=== PATIENT | male | born 1960 | race Caucasian/White ===

== ENCOUNTER 2016-08-02 08:08 | Emergency (ER) | payer BC, OTHER ==
[~2016-08-02] VITALS: Ht 170.2 cm; Wt 82.5 kg
[~2016-08-02 08:08] MED LIST: IBUP600T44 PO; NAPR1TAB9 PO; PRLSR20 PO; zyrtec PO
[2016-08-02 08:11] VITALS: TEMP 36.5; Ht 170.2 cm; Wt 82.5 kg
[2016-08-02] MEDS ORDERED: OMEG10007 PO (08:41)
[2016-08-02] MEDS ORDERED: TAMS0.4C38 PO (08:41)
[2016-08-02] MEDS ORDERED: MULT-506 PO (08:41)
[2016-08-02] MEDS ORDERED: DUTA0.5C PO (08:41)
--- NOTE | 2016-08-02 09:10 | EMERGENCY ROOM VISIT NOTE ---
History Report prepared by Debbi: Jenaro De Jesus Under the Supervision of: Dr. Palmira Chirinos M.D. First contact with patient: 08:56 Chief Complaint: CHEST PAIN Stated Complaint: CHEST PAINS Nursing Triage Summary: Pt c/o left chest pain that began yesterday at work, denies doing anything strenuous at the time. Pain is sharp and brief. Intermittent. Denies Chest pain at this time. Denies SOB, nausea, dizziness, diaphoresis when this occurs. History of Present Illness The patient is a 56 year old male who presents to the Emergency Room with complaints of sharp intermittent left sided chest pain that began yesterday. He rates his pain mild in severity. His pain comes for only about a couple seconds , then it goes away for a few hours. He was at work when the pain began. He denies that he was doing anything abnormal. The pain kept him awake for a few hours last night. He has no past history of heart problems. However, he does have a family history of heart conditions. He states that he quit smoking a couple of years ago as well. When he lies flat, he becomes mildly short of breath. His pain does not occur with exertion. He also gets a mildly sore neck with the pain as well. He is currently has nasal congestion. He denies any nausea or abdominal pain. He denies any past medical history of diabetes or hypertension. He is unsure about his cholesterol levels. He received a cardiac stress test 6 years ago that did not show anything abnormal. He took Aspirin 325 mg PO today. He did not take any nitroglycerin. Source of History: patient Onset: yesterday Position: chest (left) Symptom Intensity: mild Quality: sharp Timing: intermittent Modifying Factors (Worsening): rest (lying flat causes mild sob) Associated Symptoms: + neck pain, No abdominal pain, No nausea Note: He is having nasal congestion. Review of Systems See HPI for pertinent positives & negatives. A total of 10 systems reviewed and were otherwise negative. Past Medical & Surgical Medical Problems: (1) No Known Active Medical Problems Family History Heart disease Social History Smoking Status: Former Smoker Smokeless Tobacco Use: No Drug Use: none Marital Status: Housing Status: lives with significant other Occupation Status: employed Current/Historical Medications Scheduled Dutasteride (Avodart), 0.5 MG PO HS Fish Oil ([place]-3), 350 MG PO DAILY Multivitamin (Multivitamin), 1 TAB PO DAILY Omeprazole (Prilosec), 1 TAB PO DAILY Tamsulosin Hcl (Flomax), 0.4 MG PO HS Allergies Coded Allergies: Ciprofloxacin (Verified Allergy, Unknown, Tendonitis, 08/02/16) Physical Exam Vital Signs Date Time Temp Pulse Resp B/P Pulse Ox O2 Delivery O2 Flow Rate FiO2 08/02/16 11:22 62 18 122/70 96 Room Air 08/02/16 10:57 64 08/02/16 09:50 72 18 121/59 97 Room Air 08/02/16 08:26 71 08/02/16 08:14 96 Room Air 08/02/16 08:11 36.5 74 16 121/68 96 Room Air Physical Exam Vital signs reviewed. General: Well-appearing male, in no significant distress. HEENT: No scleral icterus, PERRLA, neck supple. Atraumatic. Cardiovascular: Regular rate and rhythm, no extra sounds. Pulmonary: Clear to auscultation bilaterally, normal work of breathing. Abdomen: Soft, nontender, nondistended, positive bowel sounds. Musculoskeletal: Atraumatic, no peripheral edema. Neurologic: Patient awake alert and oriented x 3, full strength in all 4 extremities. Cranial nerves 2 through 12 grossly intact. Skin: Warm, dry, no rash Medical Decision & Procedures ER Provider Diagnostic Interpretation: Radiology results as stated below per my review and radiologist interpretation: CHEST ONE VIEW PORTABLE CLINICAL HISTORY: chest pain dyspnea COMPARISON STUDY: 01/12/2013 FINDINGS: The bones soft tissues and hemidiaphragms are normal. The cardiomediastinal silhouette is normal. The lungs are clear. The pulmonary vasculature is normal. IMPRESSION: Negative chest. Electronically signed by: Marquis Khanna M.D. 08/02/2016 9:24 AM Dictated Date/Time: 08/02/2016 9:24 AM Laboratory Results 08/02/16 08:45 Red Blood Count 4.90, Mean Corpuscular Volume 87.3, Mean Corpuscular Hemoglobin 30.4, Mean Corpuscular Hemoglobin Concent 34.8, Mean Platelet Volume 10.2, Neutrophils (%) (Auto) 69.0, Lymphocytes (%) (Auto) 23.7, Monocytes (%) (Auto) 4.2, Eosinophils (%) (Auto) 2.4, Basophils (%) (Auto) 0.5, Neutrophils # (Auto) 4.60, Lymphocytes # (Auto) 1.58, Monocytes # (Auto) 0.28, Eosinophils # (Auto) 0.16, Basophils # (Auto) 0.03 08/02/16 08:45 Test 08/02/16 08:45 08/02/16 09:11 08/02/16 10:23 White Blood Count 6.66 K/uL (4.8-10.8) Red Blood Count 4.90 M/uL (4.7-6.1) Hemoglobin 14.9 g/dL (14.0-18.0) Hematocrit 42.8 % (42-52) Mean Corpuscular Volume 87.3 fL (80-100) Mean Corpuscular Hemoglobin 30.4 pg (25-34) Mean Corpuscular Hemoglobin Concent 34.8 g/dl (32-36) Platelet Count 225 K/uL (130-400) Mean Platelet Volume 10.2 fL (7.4-10.4) Neutrophils (%) (Auto) 69.0 % Lymphocytes (%) (Auto) 23.7 % Monocytes (%) (Auto) 4.2 % Eosinophils (%) (Auto) 2.4 % Basophils (%) (Auto) 0.5 % Neutrophils # (Auto) 4.60 K/uL (1.4-6.5) Lymphocytes # (Auto) 1.58 K/uL (1.2-3.4) Monocytes # (Auto) 0.28 K/uL (0.11-0.59) Eosinophils # (Auto) 0.16 K/uL (0-0.5) Basophils # (Auto) 0.03 K/uL (0-0.2) RDW Standard Deviation 39.0 fL (36.4-46.3) RDW Coefficient of Variation 12.2 % (11.5-14.5) Immature Granulocyte % (Auto) 0.2 % Immature Granulocyte # (Auto) 0.01 K/uL (0.00-0.02) Anion Gap 6.0 mmol/L (3-11) Est Creatinine Clear Calc Drug Dose 60.6 ml/min Estimated GFR () 64.6 Estimated GFR (Non- 55.8 BUN/Creatinine Ratio 14.6 (10-20) Calcium Level 8.6 mg/dl (8.5-10.1) Magnesium Level 2.4 mg/dl (1.8-2.4) Total Bilirubin 0.3 mg/dl (0.2-1) Direct Bilirubin < 0.1 mg/dl (0-0.2) Aspartate Amino Transf (AST/SGOT) 18 U/L (15-37) Alanine Aminotransferase (ALT/SGPT) 33 U/L (12-78) Alkaline Phosphatase 82 U/L (45-117) Total Creatine Kinase 193 U/L (39-308) Creatine Kinase MB 2.2 ng/ml (0.5-3.6) Creatine Kinase MB Ratio 1.1 (0-3.0) Total Protein 6.6 gm/dl (6.4-8.2) Albumin 3.8 gm/dl (3.4-5.0) Bedside D-Dimer 343 ng/mlFEU (0-450) Bedside Troponin I 0.000 ng/ml (0-0.045) Laboratory results per my review. ECG Indication: chest pain Rate (beats per minute): 69 Rhythm: normal sinus Findings: no acute ischemic change, no ectopy ED Course 0856: Past medical records reviewed. The patient was evaluated in room B6. A complete history and physical examination was performed. 0915: Ordered Nitroglycerin 0.4 mg SL 1150: Upon reevaluation, the patient appeared to have improvement of his symptoms. I discussed findings with him. He verbalized agreement of the treatment plan. He was discharged home. Medical Decision Differential diagnosis: Etiologies such as cardiac ischemia, aortic dissection, pulmonary embolism, pneumonia, pneumothorax, musculoskeletal, infections, pericarditis, myocarditis , esophageal rupture, gastrointestinal, as well as others were entertained. This patient was evaluated and appeared to be in no significant distress. IV access was obtained and laboratory work was drawn. The patient was placed on the blood tester fowl and found to be in a normal sinus rhythm. EKG was obtained and is negative for acute ischemia. Patient's laboratory work reveals negative cardiac enzymes. He was informed of the findings. The patient will be discharged to follow-up with his primary care physician for further cardiac testing as indicated. He will return to the ER for worsening of symptoms or any medical concerns. Impression Primary Impression: Atypical chest pain Scribe Attestation The scribe's documentation has been prepared under my direction and personally reviewed by me in its entirety. I confirm that the note above accurately reflects all work, treatment, procedures, and medical decision making performed by me. Departure Information Dispostion Home / Self-Care Referrals Clemente Babcock M.D. (PCP) Forms HOME CARE DOCUMENTATION FORM, IMPORTANT VISIT INFORMATION Patient Instructions My [facility] Additional Instructions Diagnosis: Chest pain Aspirin 81 mg daily. Follow-up with your physician this week for reevaluation and consideration of further cardiac testing. Return to the ED for worsening of symptoms or any medical concerns.
[2016-08-02] MEDS ORDERED: NITROGLYCERIN 0.4 MG SL PER TAB CHARGE SL PRN (09:15)
--- NOTE | 2016-08-02 09:25 | DIAGNOSTIC IMAGING REPORT ---
CHEST ONE VIEW PORTABLE CLINICAL HISTORY: chest pain dyspnea COMPARISON STUDY: 01/12/2013 FINDINGS: The bones soft tissues and hemidiaphragms are normal. The cardiomediastinal silhouette is normal. The lungs are clear. The pulmonary vasculature is normal. IMPRESSION: Negative chest. Electronically signed by: Marquis Khanna M.D. 08/02/2016 9:24 AM Dictated Date/Time: 08/02/2016 9:24 AM
[2016-08-02 09:32] LABS: BASO % 0.5 %; BASO ABS # 0.03 K/uL (0-0.2); COMPLETE YES; EOS % 2.4 %; HEMATOCRIT 42.8 % (42-52); IG% 0.2 %; LYMPH % 23.7 %; LYMPH ABS # 1.58 K/uL (1.2-3.4); MEAN CELL VOLUME 87.3 fL (80-100); MEAN CORPUSCULAR HEMOGLOBIN 30.4 pg (25-34); MEAN CORPUSCULAR HGB CONC 34.8 g/dl (32-36); MEAN PLATELET VOLUME 10.2 fL (7.4-10.4); MONO % 4.2 %; PLATELET COUNT 225 K/uL (130-400); WHITE BLOOD COUNT 6.66 K/uL (4.8-10.8)
[2016-08-02 09:44] LABS: ALT/SGPT 33 U/L (12-78); AST/SGOT 18 U/L (15-37); BLOOD UREA NITROGEN 20 mg/dl (7-18); BUN/CREATININE RATIO 14.6 (10-20); CALCIUM 8.6 mg/dl (8.5-10.1); CARBON DIOXIDE 27 mmol/L (21-32); CHLORIDE 108 mmol/L (98-107); GLUCOSE 168 mg/dl (70-99); MAGNESIUM 2.4 mg/dl (1.8-2.4); SODIUM 141 mmol/L (136-145)
[2016-08-02 09:49] LABS: ALKALINE PHOSPHATASE 82 U/L (45-117); CKMB/CK RATIO 1.1 (0-3.0)
[2016-08-02 11:22] VITALS: BP 122/70; PULSE 62; O2SAT 96
== END 2016-08-02 11:47 | disposition home or self-care (01) ==
LOC: C.EDB 08:09
DX: R07.89 Other chest pain (principal); Z87.891 Personal history of nicotine dependence; Z79.899 Other long term (current) drug therapy

== ENCOUNTER 2016-10-25 07:46 | Emergency (ER) | payer BC, OTHER ==
[~2016-10-25] VITALS: Ht 172.7 cm; Wt 81.5 kg
[~2016-10-25 07:46] MED LIST changes: +DUTA0.5C PO; -IBUP600T44 PO; +MULT-506 PO; -NAPR1TAB9 PO; +OMEG10007 PO; +TAMS0.4C38 PO; -zyrtec PO
[2016-10-25 07:50] VITALS: TEMP 36.4; Ht 172.7 cm; Wt 81.5 kg
[2016-10-25] MEDS ORDERED: HYDROmorphone INJ 2 MG/ML SYR/VIAL ONE (07:57)
--- NOTE | 2016-10-25 08:02 | EMERGENCY ROOM VISIT NOTE ---
History Report prepared by Debbi: Pebbles Ag Under the Supervision of: Dr. Palmira Chirinos M.D. First contact with patient: 07:55 Chief Complaint: SHOULDER PAIN Stated Complaint: DISLOCATED SHOULDER History of Present Illness The patient is a 56 year old male who presents to the Emergency Room with complaints of persistent right shoulder pain that began just prior to arrival. He currently rates his discomfort as an 8/10 in severity. The patient states that he slipped and fell this morning and caught himself with his right arm extended. He denies any previous dislocation. The patient's reports that the patient was recently evaluated in the emergency department for chest pain. She states that he followed up with his doctor and had a normal stress test. The patient's states that the patient has a strong family history of heart disease. The patient denies any nausea. Source of History: patient, spouse/significant other () Onset: prior to arrival Position: shoulder (right) Symptom Intensity: 8/10 Timing: other (persistent) Associated Symptoms: No nausea Review of Systems See HPI for pertinent positives & negatives. A total of 10 systems reviewed and were otherwise negative. Past Medical & Surgical Medical Problems: (1) No Known Active Medical Problems Family History Heart disease Social History Smoking Status: Former Smoker Drug Use: none Marital Status: Housing Status: lives with significant other Occupation Status: employed Current/Historical Medications Scheduled Aspirin (Aspirin Ec), 81 MG PO DAILY Cetirizine Hcl (Zyrtec), 10 MG PO DAILY Dutasteride (Avodart), 0.5 MG PO HS Fish Oil ([place]-3), 350 MG PO DAILY Multivitamin (Multivitamin), 1 TAB PO DAILY Omeprazole (Prilosec), 20 MG PO DAILY Tamsulosin Hcl (Flomax), 0.4 MG PO HS Allergies Coded Allergies: Ciprofloxacin (Verified Allergy, Unknown, Tendonitis, 10/25/16) Physical Exam Vital Signs Date Time Temp Pulse Resp B/P (MAP) Pulse Ox O2 Delivery O2 Flow Rate FiO2 10/25/16 09:13 62 16 125/69 95 10/25/16 07:50 36.4 77 16 113/69 93 Room Air Physical Exam Vital signs reviewed. General: Well-appearing male, in some discomfort. HEENT: No scleral icterus, PERRLA, neck supple. Atraumatic. Cardiovascular: Regular rate and rhythm, no extra sounds. Pulmonary: Clear to auscultation bilaterally, normal work of breathing. Abdomen: Soft, nontender, nondistended, positive bowel sounds. Musculoskeletal: Deformity of right shoulder. Humeral head is palpated anteriorly, decreased range of motion due to pain. No stepoff or crepitus appreciated. Neurologic: Patient awake alert and oriented x 3, full strength in all 4 extremities. Cranial nerves 2 through 12 grossly intact. Skin: Warm, dry, no rash Medical Decision & Procedures ER Provider Diagnostic Interpretation: X-ray results as stated below per interpretation by me and the radiologist: RIGHT SHOULDER MIN 2 VIEWS ROUTINE CLINICAL HISTORY: Right shoulder dislocation, postreduction. COMPARISON: None FINDINGS: Alignment of the right glenohumeral joint is anatomic. No acute fracture is identified. No convincing Hill-Sachs deformity is identified. A 5 mm calcific density along the proximal shaft of the right humerus is of doubtful significance. 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 There is mild glenohumeral joint osteoarthritis. IMPRESSION: Anatomic alignment of the right glenohumeral joint status post reduction. No fracture identified. Electronically signed by: Tal An M.D. 10/25/2016 8:33 AM Dictated Date/Time: 10/25/2016 8:31 AM Medications Administered Medications (Trade) Dose Ordered Sig/Jesus Route Start Time Stop Time Status Last Admin Dose Admin Hydromorphone HCl (Dilaudid Inj) 2 mg STK-MED ONCE .ROUTE 10/25/16 07:57 10/25/16 07:58 DC 10/25/16 08:01 2 MG Procedure Anterior Shoulder Dislocation Reduction Indication: right should dislocation Verbal consent obtained. Risks and benefits were explained with the usual customary discussion. A time out was taken. Neurovascular examination before the procedure revealed intact. The right shoulder glenohumeral dislocation was reduced by placing the patient prone and applying gentle downward inline traction on the humerus, with the elbow flexed at 90 degrees, while scapula manipulation was applied. This resulted in an easy reduction without complication. Neurovascular examination after the procedure revealed intact. The patient had significant pain relief and tolerated the procedure well. ED Course 0756: Past medical records reviewed. The patient was evaluated in room A10. A complete history and physical examination was performed. 0757: Ordered Dilaudid Inj 2 mg .route. 0858: I reevaluated the patient and he is resting comfortably. I discussed the exam findings with him and I discussed the treatment plan. He verbalized complete understanding and agreement. He is ready to go home. Medical Decision Differential diagnosis: Etiologies such as fracture, dislocation, neurovascular compromise, compartment syndrome, soft tissue injury, as well as others were entertained. Medication Reconciliation: I attest that I have personally reviewed the patient' s current medication list. Blood Pressure Screening: Patient was found to have normal blood pressure on screening and does not require follow-up. This patient was evaluated and appeared to be in no significant distress. The patient was given Dilaudid 2 mg IM. He was placed into the prone position with his affected shoulder on the edge of the bed. He was encouraged to straighten the arm and reach for the floor. Some gentle traction was placed on the arm with easy reduction of the right shoulder. There were no complications. The patient was rolled into the supine position and placed into a sling. Postreduction films confirm realignment of the joint. There is no acute bony fracture. Patient was discharged follow-up with orthopedic surgery. He was ibuprofen for pain and ice the shoulder intermittently for the next 24 hours. He will return to the ER for worsening of symptoms or any medical concerns. Impression Primary Impression: Shoulder dislocation Scribe Attestation The scribe's documentation has been prepared under my direction and personally reviewed by me in its entirety. I confirm that the note above accurately reflects all work, treatment, procedures, and medical decision making performed by me. Departure Information Dispostion Home / Self-Care Referrals Clemente Babcock M.D. (PCP) William Negrete D.O. Forms HOME CARE DOCUMENTATION FORM, IMPORTANT VISIT INFORMATION Patient Instructions My [facility] Additional Instructions Diangosis: Shoulder dislocation Ibuprofen 600 mg every 6 hours as needed for pain. Wear the sling at all times except for bathing. Apply ice intermittently for 24 hours. Follow up with orhtopedics this week for reevaluation. Return to the ED for worsening of symptoms or any medical concerns.
--- NOTE | 2016-10-25 08:34 | DIAGNOSTIC IMAGING REPORT ---
RIGHT SHOULDER MIN 2 VIEWS ROUTINE CLINICAL HISTORY: Right shoulder dislocation, postreduction. COMPARISON: None FINDINGS: Alignment of the right glenohumeral joint is anatomic. No acute fracture is identified. No convincing Hill-Sachs deformity is identified. A 5 mm calcific density along the proximal shaft of the right humerus is of doubtful significance. 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 There is mild glenohumeral joint osteoarthritis. IMPRESSION: Anatomic alignment of the right glenohumeral joint status post reduction. No fracture identified. Electronically signed by: Tal An M.D. 10/25/2016 8:33 AM Dictated Date/Time: 10/25/2016 8:31 AM
[2016-10-25] MEDS ORDERED: CETI10TA10 PO (08:37)
[2016-10-25] MEDS ORDERED: ASPI81TA28 PO (08:37)
[2016-10-25 09:13] VITALS: BP 125/69; PULSE 62; O2SAT 95
== END 2016-10-25 09:14 | disposition home or self-care (01) ==
LOC: C.EDB 07:49 → C.EDA 09:14
DX: S43.004A Unspecified dislocation of right shoulder joint, initial encounter (principal); W01.0XXA Fall on same level from slipping, tripping and stumbling without subsequent striking against object, initial encounter; Z87.891 Personal history of nicotine dependence; Z79.82 Long term (current) use of aspirin; Z79.899 Other long term (current) drug therapy

== ENCOUNTER → 2017-07-02 | Outpatient (CLI) | payer OTHER ==
[~2017-07-02] MED LIST changes: +ASPI81TA28 PO; +CETI10TA10 PO; +PENT100C6 PO; +RANI150T3 PO
[2017-07-02 16:56] LABS: BASO % 0.3 %; BASO ABS # 0.03 K/uL (0-0.2); EOS % 1.6 %; EOS ABS # 0.14 K/uL (0-0.5); HEMATOCRIT 43.4 % (42-52); HEMOGLOBIN 15.3 g/dL (14.0-18.0); IG# 0.05 K/uL (0.00-0.02); LYMPH % 24.1 %; MEAN CELL VOLUME 85.9 fL (80-100); MEAN CORPUSCULAR HEMOGLOBIN 30.3 pg (25-34); MEAN CORPUSCULAR HGB CONC 35.3 g/dl (32-36); MONO % 6.9 %; NEUT % 66.5 %; NEUT ABS # 5.79 K/uL (1.4-6.5); PLATELET COUNT 240 K/uL (130-400); RED CELL DISTRIBUTION WIDTH CV 12.4 % (11.5-14.5); RED CELL DISTRIBUTION WIDTH SD 38.9 fL (36.4-46.3); WHITE BLOOD COUNT 8.71 K/uL (4.8-10.8)
[2017-07-02 17:16] LABS: ALBUMIN 4.2 gm/dl (3.4-5.0); ALT/SGPT 47 U/L (12-78); BLOOD UREA NITROGEN 17 mg/dl (7-18); CALCIUM 9.3 mg/dl (8.5-10.1); CARBON DIOXIDE 27 mmol/L (21-32); CREATININE 1.24 mg/dl (0.60-1.40); GLUCOSE 96 mg/dl (70-99); POTASSIUM 4.2 mmol/L (3.5-5.1); SODIUM 138 mmol/L (136-145)
[2017-07-02 17:19] LABS: ALKALINE PHOSPHATASE 75 U/L (45-117); AST/SGOT 29 U/L (15-37); TOTAL PROTEIN 7.3 gm/dl (6.4-8.2)
== END | disposition home or self-care (01) ==
LOC: C.LABBC 12:44
PROVIDERS: ATTEND Nurse Practitioner Adult Health
DX: K21.9 Gastro-esophageal reflux disease without esophagitis (principal); R10.13 Epigastric pain

== ENCOUNTER 2017-07-05 04:29 | Emergency (ER) | payer OTHER ==
[~2017-07-05] VITALS: Ht 172.7 cm; Wt 82.1 kg
[~2017-07-05 04:29] MED LIST changes: -PENT100C6 PO; -RANI150T3 PO
[2017-07-05 04:36] VITALS: TEMP 36.6; Ht 172.7 cm; Wt 82.1 kg
[2017-07-05] MEDS ORDERED: RANI150T3 PO (05:04)
[2017-07-05] MEDS ORDERED: PENT100C6 PO (05:04)
[2017-07-05 05:50] LABS: BASO % 0.5 %; BASO ABS # 0.03 K/uL (0-0.2); EOS % 4.2 %; EOS ABS # 0.28 K/uL (0-0.5); HEMATOCRIT 42.1 % (42-52); HEMOGLOBIN 14.9 g/dL (14.0-18.0); IG# 0.05 K/uL (0.00-0.02); LYMPH % 36.8 %; LYMPH ABS # 2.44 K/uL (1.2-3.4); MEAN CELL VOLUME 86.3 fL (80-100); MEAN CORPUSCULAR HEMOGLOBIN 30.5 pg (25-34); MEAN CORPUSCULAR HGB CONC 35.4 g/dl (32-36); MEAN PLATELET VOLUME 10.1 fL (7.4-10.4); MONO % 9.8 %; MONO ABS # 0.65 K/uL (0.11-0.59); NEUT % 47.9 %; NEUT ABS # 3.18 K/uL (1.4-6.5); PLATELET COUNT 224 K/uL (130-400); RED CELL DISTRIBUTION WIDTH CV 12.4 % (11.5-14.5); RED CELL DISTRIBUTION WIDTH SD 39.3 fL (36.4-46.3); WHITE BLOOD COUNT 6.63 K/uL (4.8-10.8)
[2017-07-05 05:56] LABS: ALBUMIN 3.8 gm/dl (3.4-5.0); ALT/SGPT 41 U/L (12-78); AST/SGOT 25 U/L (15-37); BLOOD UREA NITROGEN 18 mg/dl (7-18); CALCIUM 8.7 mg/dl (8.5-10.1); CARBON DIOXIDE 28 mmol/L (21-32); GLUCOSE 114 mg/dl (70-99); LIPASE 164 U/L (73-393); POTASSIUM 4.3 mmol/L (3.5-5.1); SODIUM 138 mmol/L (136-145)
[2017-07-05 06:01] LABS: ALKALINE PHOSPHATASE 78 U/L (45-117); TOTAL PROTEIN 6.8 gm/dl (6.4-8.2)
--- NOTE | 2017-07-05 06:40 | EMERGENCY ROOM VISIT NOTE ---
History First contact with patient: 05:03 Chief Complaint: ABDOMINAL PAIN Stated Complaint: ABD PAIN AND NECK Nursing Triage Summary: c/o abd pain for " a while." pain worse at night. c/o pain across abd this am mid right quadrant. denies n/v/d. History of Present Illness The patient is a 57 year old male who presents to the Emergency Room with complaints of abdominal pain for the past few days. The patient reports that he was at his primary care provider's office 2 days ago for these symptoms. They thought at that time that he was having a flareup of his GERD. He is being scheduled for an EGD. The patient reports he has had upper abdominal pain with radiation through to the back. He states that he woke up 4 hours ago due to the pain. The pain is primarily in the right upper abdomen and radiates into the back. He reports a pressure sensation. He takes omeprazole and ranitidine for his GERD. He states that he has been told he has gallstones in the past. He denies any history of other abdominal issues. He denies nausea/ vomiting, changes in bowel movements, fevers or urinary symptoms. He rates his discomfort a 5/10. Nothing makes the pain better or worse. He has had a normal appetite. Review of Systems A complete 10 point review of systems was reviewed with the patient with pertinent positives and negatives as per history of present illness. All else were negative. Past Medical/Surgical History Medical Problems: (1) No Known Active Medical Problems Family History Heart disease Social History Smoking Status: Never Smoker Drug Use: none Marital Status: Housing Status: lives with significant other Occupation Status: employed Current/Historical Medications Scheduled Aspirin (Aspirin Ec), 81 MG PO DAILY Cetirizine Hcl (Zyrtec), 10 MG PO DAILY Dutasteride (Avodart), 0.5 MG PO HS Multivitamin (Multivitamin), 1 TAB PO DAILY Omeprazole (Prilosec), 20 MG PO DAILY Pentosan Polysulfate Sodium (Elmiron), 100 MG PO DAILY Ranitidine Hcl (Zantac), 150 MG PO HS Tamsulosin Hcl (Flomax), 0.4 MG PO HS Physical Exam Vital Signs Date Time Temp Pulse Resp B/P (MAP) Pulse Ox O2 Delivery O2 Flow Rate FiO2 07/05/17 07:40 63 16 115/76 98 07/05/17 06:20 65 20 131/68 99 Room Air 07/05/17 04:36 36.6 82 18 129/80 99 Room Air Physical Exam VITALS: Vitals are noted on the nurse's note and reviewed by myself. Vital signs stable. GENERAL: This is a 57-year-old male, in no acute distress, nondiaphoretic, well- developed well-nourished. SKIN: The skin was without rashes. EARS: External auditory canals clear, tympanic membranes pearly edlgado without erythema or effusion bilaterally. EYES: Pupils equal round and reactive to light and accommodation. MOUTH: Mucous membranes moist. Tonsils are not enlarged. Pharynx without erythema or exudate. HEART: Regular rate and rhythm without murmurs gallops or rubs. LUNGS: Clear to auscultation bilaterally without wheezes, rales or rhonchi. ABDOMEN: Positive bowel sounds x 4. Soft, mild tenderness across the upper abdomen. No guarding or rebound tenderness. NEURO: Patient was alert and oriented to person place and time. Medical Decision & Procedures ER Provider Diagnostic Interpretation: US RUQ: Hepatic steatosis. Multiple gallstones. No gallbladder wall thickening, or pericholecystic fluid. Radiologist: Jaida Guillermo MD CT ABD/PELVIS IV CONTRAST ONLY FINDINGS: Lower chest: There is pulmonary emphysema. There are minor dependent atelectatic changes. Liver: There is a to small to characterize 5 mm hypodensity within the right lobe of the liver. This measures 3 mm in 2008. This is felt to be benign. Gallbladder: Cholelithiasis no pericholecystic infiltration. No gallbladder wall thickening. Spleen: Normal in size and attenuation. Pancreas: Unremarkable. Adrenal glands: Unremarkable. Kidneys: There is a to small to characterize 9 mm right renal hypodensity likely representing a cyst. There is a to small to characterize 5 mm left renal hypodensity likely are presenting a cyst. There is no hydronephrosis. Bowel: There are no transition zones to indicate bowel obstruction. There is no evidence of acute diverticulitis. The appendix is felt to be normal. Peritoneum: There is no intraperitoneal free air or abdominal ascites. Vasculature: The abdominal aorta is normal in course and caliber. There is a duplicated IVC. Adenopathy: Minimally prominent aortic caval lymph nodes remain unchanged the prior study. Pelvic viscera: The bladder, and pelvic viscera are unremarkable. Skeletal structures: There is bilateral L5 spondylolysis. There is a grade 2/4 spondylolisthesis of L5 and S1. IMPRESSION: 1. No acute intra-abdominal or pelvic findings 2. No evidence of bowel obstruction. No evidence of free air 3. Diverticulosis. No evidence of acute diverticulitis 4. Normal appendix 5. Cholelithiasis Laboratory Results 07/05/17 04:48 Red Blood Count 4.88, Mean Corpuscular Volume 86.3, Mean Corpuscular Hemoglobin 30.5, Mean Corpuscular Hemoglobin Concent 35.4, Mean Platelet Volume 10.1, Neutrophils (%) (Auto) 47.9, Lymphocytes (%) (Auto) 36.8, Monocytes (%) (Auto) 9.8, Eosinophils (%) (Auto) 4.2, Basophils (%) (Auto) 0.5, Neutrophils # (Auto) 3.18, Lymphocytes # (Auto) 2.44, Monocytes # (Auto) 0.65, Eosinophils # (Auto) 0.28, Basophils # (Auto) 0.03 07/05/17 04:48 Test 07/05/17 04:48 White Blood Count 6.63 K/uL (4.8-10.8) Red Blood Count 4.88 M/uL (4.7-6.1) Hemoglobin 14.9 g/dL (14.0-18.0) Hematocrit 42.1 % (42-52) Mean Corpuscular Volume 86.3 fL (80-100) Mean Corpuscular Hemoglobin 30.5 pg (25-34) Mean Corpuscular Hemoglobin Concent 35.4 g/dl (32-36) Platelet Count 224 K/uL (130-400) Mean Platelet Volume 10.1 fL (7.4-10.4) Neutrophils (%) (Auto) 47.9 % Lymphocytes (%) (Auto) 36.8 % Monocytes (%) (Auto) 9.8 % Eosinophils (%) (Auto) 4.2 % Basophils (%) (Auto) 0.5 % Neutrophils # (Auto) 3.18 K/uL (1.4-6.5) Lymphocytes # (Auto) 2.44 K/uL (1.2-3.4) Monocytes # (Auto) 0.65 K/uL (0.11-0.59) Eosinophils # (Auto) 0.28 K/uL (0-0.5) Basophils # (Auto) 0.03 K/uL (0-0.2) RDW Standard Deviation 39.3 fL (36.4-46.3) RDW Coefficient of Variation 12.4 % (11.5-14.5) Immature Granulocyte % (Auto) 0.8 % Immature Granulocyte # (Auto) 0.05 K/uL (0.00-0.02) Anion Gap 3.0 mmol/L (3-11) Est Creatinine Clear Calc Drug Dose 65.5 ml/min Estimated GFR () 70.2 Estimated GFR (Non- 60.6 BUN/Creatinine Ratio 13.5 (10-20) Calcium Level 8.7 mg/dl (8.5-10.1) Total Bilirubin 0.8 mg/dl (0.2-1) Aspartate Amino Transf (AST/SGOT) 25 U/L (15-37) Alanine Aminotransferase (ALT/SGPT) 41 U/L (12-78) Alkaline Phosphatase 78 U/L (45-117) Troponin I < 0.015 ng/ml (0-0.045) Total Protein 6.8 gm/dl (6.4-8.2) Albumin 3.8 gm/dl (3.4-5.0) Globulin 3.0 gm/dl (2.5-4.0) Albumin/Globulin Ratio 1.3 (0.9-2) Lipase 164 U/L (73-393) ECG Per My Interpretation Indication: abdominal pain Rate (beats per minute): 61 Rhythm: normal sinus Findings: no acute ischemic change, no ectopy Change: no significant change Medical Decision Differential diagnosis includes cholecystitis, pancreatitis, gastroenteritis, gastritis, peptic ulcer disease, bowel obstruction, among others. The patient is a 57-year-old male who presents today complaining of upper abdominal pain. Labs revealed no leukocytosis, anemia or concerning electrolyte abnormalities. Lipase was not elevated. LFTs within normal limits. Troponin was not elevated. EKG showed normal sinus rhythm without ischemia or ectopy. Right upper quadrant ultrasound was performed initially and showed no acute findings. CT was then performed and was also unremarkable. Patient does have a history of gastritis and was started on ranitidine this week in addition to his omeprazole. The patient was advised to keep a bland diet and follow-up with his PCP. I do feel the ranitidine will likely give him some additional relief. The patient's case was reviewed with Dr. Chirinos, ED attending physician, who agreed with my assessment and treatment plan. Based on the patient's presentation and work up, I feel the patient is stable for outpatient treatment. The patient was educated to return to the emergency department for any worsening of their current condition or new/concerning symptoms. He will follow up with his PCP. Medication Reconcilliation Current Medication List: was personally reviewed by me Blood Pressure Screening Patient's blood pressure: Normal blood pressure Impression Primary Impression: Upper abdominal pain Departure Information Dispostion Home / Self-Care Condition GOOD Referrals Clemente Babcock M.D. (PCP) Patient Instructions My [facility] Additional Instructions You have been treated in the Emergency Department for your Abdominal Pain. Laboratory results and imaging studies have ruled out any emergent causes for your abdominal pain which would warrant admission or surgery. For pain control, you can use the following [id number] medicines (if >12 yo): - Regular strength (325mg/tab) Tylenol (acetaminophen) 2 tabs every 4-6 hours as needed. Do not exceed 12 tablets in a 24 hour period. Avoid taking more than 4 grams (4000 mg) of Tylenol per day. This includes any other sources of acetaminophen you may take on a regular basis. - Regular strength (200 mg/tab) Advil (ibuprofen) 1-2 tabs every 4-6 hours as needed. Do not exceed a dose of 3200 mg per day. Drink plenty of water and stay well hydrated. As with any trip to the Emergency Department, you should follow-up with your Primary Care Provider from today's visit. Keep a bland diet. I suggest the brat diet (bananas, rice, applesauce, toast). Return to the emergency department if your symptoms persist despite treatment plan outlined above or if the following symptoms occur: Fevers, vomiting, worsening abdominal pain, or any other new/concerning symptoms.
[2017-07-05] MEDS ORDERED: OPTIRAY 320 IV PRN (06:45)
--- NOTE | 2017-07-05 06:59 | DIAGNOSTIC IMAGING REPORT ---
CT ABD/PELVIS IV CONTRAST ONLY CLINICAL HISTORY: upper abdominal pain COMPARISON STUDY: 03/07/2008 TECHNIQUE: Following the IV administration of 91 mL of Optiray-320, CT scan of the abdomen and pelvis was performed from the lung bases to the proximal femurs. Images are reviewed in the axial, sagittal, and coronal planes. IV contrast was administered without complication. A dose lowering technique was utilized adhering to the principles of ALARA. CT DOSE: 437.72 mGy.cm FINDINGS: Lower chest: There is pulmonary emphysema. There are minor dependent atelectatic changes. Liver: There is a to small to characterize 5 mm hypodensity within the right lobe of the liver. This measures 3 mm in 2008. This is felt to be benign. Gallbladder: Cholelithiasis no pericholecystic infiltration. No gallbladder wall thickening. Spleen: Normal in size and attenuation. Pancreas: Unremarkable. Adrenal glands: Unremarkable. Kidneys: There is a to small to characterize 9 mm right renal hypodensity likely representing a cyst. There is a to small to characterize 5 mm left renal hypodensity likely are presenting a cyst. There is no hydronephrosis. Bowel: There are no transition zones to indicate bowel obstruction. There is no evidence of acute diverticulitis. The appendix is felt to be normal. Peritoneum: There is no intraperitoneal free air or abdominal ascites. Vasculature: The abdominal aorta is normal in course and caliber. There is a duplicated IVC. Adenopathy: Minimally prominent aortic caval lymph nodes remain unchanged the prior study. Pelvic viscera: The bladder, and pelvic viscera are unremarkable. Skeletal structures: There is bilateral L5 spondylolysis. There is a grade 2/4 spondylolisthesis of L5 and S1. IMPRESSION: 1. No acute intra-abdominal or pelvic findings 2. No evidence of bowel obstruction. No evidence of free air 3. Diverticulosis. No evidence of acute diverticulitis 4. Normal appendix 5. Cholelithiasis Electronically signed by: Kamaljit Fuentes M.D. 07/05/2017 6:58 AM Dictated Date/Time: 07/05/2017 6:52 AM
[2017-07-05 07:40] VITALS: BP 115/76; PULSE 63; O2SAT 98
--- NOTE | 2017-07-05 08:56 | DIAGNOSTIC IMAGING REPORT ---
BILIARY ULTRASOUND CLINICAL HISTORY: Right upper quadrant and epigastric pain. History of gallstones. COMPARISON STUDY: No previous studies for comparison. FINDINGS: The pancreas was nonvisualized. There is increased hepatic echogenicity, nonspecific finding often seen in hepatic steatosis. The common bile duct measured 4 mm. There is cholelithiasis. There was no gallbladder wall thickening and no pericholecystic fluid. There is no right-sided hydronephrosis IMPRESSION: 1. Cholelithiasis. No evidence of ductal dilatation 2. Suspected hepatic steatosis 3. Nondiagnostic evaluation of the pancreas Electronically signed by: Kamaljit Fuentes M.D. 07/05/2017 8:54 AM Dictated Date/Time: 07/05/2017 8:53 AM
== END 2017-07-05 07:40 | disposition home or self-care (01) ==
LOC: C.EDB 04:29 → C.EDA 07:40
DX: R10.10 Upper abdominal pain, unspecified (principal); K21.9 Gastro-esophageal reflux disease without esophagitis; Z82.49 Family history of ischemic heart disease and other diseases of the circulatory system; Z79.82 Long term (current) use of aspirin; Z79.899 Other long term (current) drug therapy

== ENCOUNTER → 2017-08-06 | Outpatient (CLI) | payer OTHER ==
[~2017-08-06] MED LIST changes: -OMEG10007 PO; +PENT100C6 PO; +RANI150T3 PO
--- NOTE | 2017-08-07 08:32 | DIAGNOSTIC IMAGING REPORT ---
L RIBS UNILATERAL WITH PA CHEST CLINICAL HISTORY: 57 years-old Male presenting with M54.9 Left-sided back pain, left posterior rib pain for 5 weeks. TECHNIQUE: Frontal and oblique views of the left ribs and PA view of the chest were obtained. COMPARISON: Chest x-ray from 08/02/2016. FINDINGS: Atherosclerosis of aortic arch. Cardiac silhouette normal in size. Mild prominence of lung markings though no focal opacity is evident. No large pleural effusion or pneumothorax. No displaced left rib fracture. Upper abdomen normal. IMPRESSION: 1. No displaced left rib fracture. 2. No acute cardiopulmonary disease. Electronically signed by: Clemente Garrett M.D. 08/07/2017 8:30 AM Dictated Date/Time: 08/07/2017 8:25 AM
== END | disposition home or self-care (01) ==
LOC: C.RADBC 14:17
PROVIDERS: ATTEND Nurse Practitioner Adult Health
DX: M54.9 Dorsalgia, unspecified (principal)

== ENCOUNTER 2018-04-03 08:32 | Observation (INO) ==
[2018-04-03 09:34] LABS: Albumin Level 3.9 gm/dl (3.4-5.0); BUN Creatinine Ratio 19.6 (10-20); Calcium 9.2 mg/dl (8.5-10.1); Creatinine Clr Calc Pharmacy 73.8 ml/min; Est GFR (African American) 81.7; Est GFR (Non-African American) 70.5; Potassium 4.3 mmol/L (3.5-5.1)
[2018-04-03 09:37] LABS: Albumin Globulin Ratio 1.2 (0.9-2); Bilirubin,Total 0.6 mg/dl (0.2-1); Globulin 3.1 gm/dl (2.5-4.0)
== END 2018-04-04 13:47 | disposition home or self-care (01) ==
LOC: ED 08:32 → 2S 08:32 → SUATTDRO 11:52 → 2S 14:23